=== PATIENT | male | born 1955 | race Caucasian/White ===

== ENCOUNTER 2023-07-10 09:59 | Day surgery (SDC) | payer MEDICARE, OTHER ==
[~2023-07-10] VITALS: Ht 185.4 cm; Wt 82.4 kg
[~2023-07-10 09:59] MED LIST: BSS IRRIG/VANCO(10MG)/TOBRA(5MG)/EPINEPH(1:1000-0.5CC)500ML BAG-ORONLY IR ONE; CEFUROXIME 1MG/0.1ML INTRACAMERAL INJ As Ordered ONE; CYCLOPENTOLATE 1% OPHTH SOLN 2ML BTL OD SCH; FLOM0.4C39 PO; LIDOCAINE 1% SDV 5ML VIAL As Ordered ONE; LIDOCAINE 3.5 % 1ML OPHTH TOPICAL GEL OU ONE; OFLOXACIN 0.3 % (OCUFLOX) OPTH SOL 5ML OD ONE; PHENYLEPHRINE 10% OPHTH SOL 5ML OD PRN; PHENYLEPHRINE 2.5% OPHTH SOL 2ML OD SCH; TROPICAMIDE 1% OPHTH SOLN 15ML OD SCH
[2023-07-10] MEDS ORDERED: fentaNYL 100 MCG/2 ML INJECTION As Ordered ONE (11:16)
[2023-07-10] MEDS ORDERED: MIDAZOLAM INJ 2MG/2ML VIAL As Ordered ONE (11:16)
[2023-07-10 12:30] VITALS: BP 139/89; TEMP 98.4; O2SAT 97
== END 2023-07-10 12:57 | disposition home or self-care (01) ==
LOC: M SDC 09:59
PROVIDERS: ATTEND Ophthalmology
DX: H25.11 Age-related nuclear cataract, right eye (principal); N40.0 Benign prostatic hyperplasia without lower urinary tract symptoms; Z79.899 Other long term (current) drug therapy
CPT/HCPCS: 66984; 92015; J0697; J2250; J3010; V2632

== ENCOUNTER 2023-08-21 09:42 | Day surgery (SDC) | payer MEDICARE, OTHER ==
[~2023-08-21] VITALS: Ht 185.4 cm; Wt 82.1 kg
[~2023-08-21 09:42] MED LIST changes: +BSS IRRIG/VANCO(10MG)/TOBRA(5MG)/EPINEPH(1:1000-0.5CC)500ML BAG-ORONLY As Ordered ONE; -CYCLOPENTOLATE 1% OPHTH SOLN 2ML BTL OD SCH; +CYCLOPENTOLATE 1% OPHTH SOLN 2ML BTL OS SCH; -OFLOXACIN 0.3 % (OCUFLOX) OPTH SOL 5ML OD ONE; +OFLOXACIN 0.3 % (OCUFLOX) OPTH SOL 5ML OS ONE; -PHENYLEPHRINE 10% OPHTH SOL 5ML OD PRN; +PHENYLEPHRINE 10% OPHTH SOL 5ML OS PRN; -PHENYLEPHRINE 2.5% OPHTH SOL 2ML OD SCH; +PHENYLEPHRINE 2.5% OPHTH SOL 2ML OS SCH; -TROPICAMIDE 1% OPHTH SOLN 15ML OD SCH; +TROPICAMIDE 1% OPHTH SOLN 15ML OS SCH
[2023-08-21] MEDS ORDERED: MIDAZOLAM INJ 2MG/2ML VIAL As Ordered ONE (09:44)
[2023-08-21] MEDS ORDERED: VISCOAT 40-30MG/ML 0.5ML SYRINGE As Ordered ONE (11:05)
[2023-08-21] MEDS ORDERED: CARBACHOL 0.01% OPHTH SOLN 1.5ML VIAL As Ordered ONE (11:14)
[2023-08-21] MEDS ORDERED: TOBRADEX OPHTH OINT 3.5 GM As Ordered ONE (11:23)
[2023-08-21 11:33] VITALS: BP 160/84; TEMP 98.1; O2SAT 97
== END 2023-08-21 11:50 | disposition home or self-care (01) ==
LOC: M SDC 09:42
PROVIDERS: ATTEND Ophthalmology
DX: H25.12 Age-related nuclear cataract, left eye (principal); N40.0 Benign prostatic hyperplasia without lower urinary tract symptoms; Z79.899 Other long term (current) drug therapy
CPT/HCPCS: 66984; 92015; J0697; J2250; V2632